=== PATIENT | female | born 1985 | race Caucasian/White ===

== ENCOUNTER → 2021-12-17 11:06 | Outpatient (CLI) | payer OTHER, SELFPAY ==
--- NOTE | 2021-12-17 11:08 | DI.US.S_ITS ---
PROCEDURE: US PELVIC COMPLETE INDICATIONS: History endometriosis, pelvic pain TECHNIQUE: Real-time scanning was performed of the pelvic organs, with image documentation. Additional endovaginal scanning was necessary due to incomplete visualization of the adnexal and endometrial structures by transabdominal scanning. COMPARISON: None. FINDINGS: This study is limited by incomplete bladder prep. Uterus: Uterus is anteverted and normal in size at 7.1 x 2.9 x 4.2 cm. The myometrium is homogeneous. The endometrium measures 5 mm combined thickness. An IUD is seen along the endometrial stripe, which is mildly low lying. Ovaries: The right ovary measures 2.5 x 1.8 x 1.8 cm. The left ovary measures 2.3 x 1.6 x 1.5 cm. The ovaries have a normal sonographic appearance. Prominent vessels can be seen within the right adnexal region. No adnexal masses are seen. Other: No pathologic free abdominal or pelvic fluid. IMPRESSION: No adnexal masses or free pelvic fluid can be seen. The IUD can be seen along the endometrial stripe, yet is mildly low lying. There is prominence of the right adnexal vessels. Please consider pelvic varices. We strive to produce accurate, complete, and clear reports of imaging services. To assist us in improving patient care, this report was composed using standard report templates and voice recognition software. Therefore, it may contain abnormal punctuation, insertions and/or omissions. Occasional wrong-word or sound-alike substitutions may occur. Though we review the report and make efforts to correct it, we do recommend that the report be read carefully in proper context to recognize any text inaccuracies. Dictated by: Saurav Varner M.D. on 12/17/2021 at 12:14 Approved by: Saurav Varner M.D. on 12/17/2021 at 12:16
== END ==
PROVIDERS: PCP Student in an Organized Health Care Education/Training Program; Referring Provider Obstetrics & Gynecology; Visit Provider Obstetrics & Gynecology
DX: R10.2 Pelvic and perineal pain (principal); N80.9 Endometriosis, unspecified
CPT/HCPCS: 76830; 76856

== ENCOUNTER → 2022-03-05 09:55 | Outpatient (CLI) | payer OTHER, SELFPAY ==
[2022-03-05 11:05] LABS: COVID19 -Nasal RAPID Negative (Negative)
== END ==
PROVIDERS: PCP Student in an Organized Health Care Education/Training Program; Visit Provider Obstetrics & Gynecology
DX: Z01.812 Encounter for preprocedural laboratory examination (principal); Z20.822 Contact with and (suspected) exposure to COVID-19
CPT/HCPCS: 87635

== ENCOUNTER 2022-03-06 12:11 | Day surgery (SDC) | payer OTHER, SELFPAY ==
[2022-02-26 15:11] VITALS: BMI 22.8
[2022-03-06] VITALS (10 sets, daily range): BP systolic 95–118; BP diastolic 52–73; PULSE 69–91; RESP 11–17; TEMP 36.3–37.1; O2SAT 98–100; BMI 22.3
--- NOTE | 2022-03-06 | PATH_ITS ---
[facility] Accession Number: [id number] . 01 Material submitted: . uterus - UTERUS AND BILATERAL FALLOPIAN TUBES . 02 Diagnosis: Uterus and Bilateral Fallopian Tubes, Supracervical Hysterectomy and Bilateral Salpingectomy: Variably decidualized endometrium, suggestive of exogenous hormone effect. Myometrium with no diagnostic abnormality. Bilateral fimbriated fallopian tubes with simple benign paratubal cysts. No evidence of neoplasm. [facility] 03/13/2022 1205 Local . 02 Electronically signed: . Christos Easton MD, PhD, Pathologist NPI- [id number] . 01 Gross description: . The specimen is received in formalin, with the designation uterus and bilateral fallopian tubes, consists of a partially fragmented uterine fundus (36 grams, 4.3 cm from fundus to cervical stump, 5.3 cm from cornu to cornu, 2.3 cm from anterior to posterior, fragments of uterine fundus range in size from 1.0 x 0.8 x 0.4 cm to 2.0 x 1.7 x 1.7 cm), attached right fimbriated fallopian tube (5.3 x 0.4 cm), and attached left fimbriated fallopian tube (5.5 x 0.4 cm). The anterior uterine wall is fragmented and the posterior uterine wall is intact. The serosal surfaces are grossly unremarkable, the endometrial cavity (2.8 x 2.2 cm), is lined by pale daniels unremarkable endometrium (0.1 cm average thickness). Sectioning reveals unremarkable myometrium (1.5 cm average thickness). The fallopian tubes are bilaterally unremarkable. The specimen is representatively submitted as follows: . A1: Full thickness rep of fragmented anterior endomyometrium. A2: Full thickness rep of posterior endomyometrium. A3: Entire fimbria and cross sections of right fallopian tube. A4: Entire fimbria and cross sections of the left fallopian tube. ([id number]) /MRV 03/12/2022 1143 Local . 02 Pathologist provided ICD-10: N92.0 . 02 CPT . 489481 Specimen Comment: A courtesy copy of this report has been sent to [phone] Performed at: 01 [facility] [address] [id number] MD Jose A Delgado MD Phone: [phone] Performed at: [address] [facility] [address] [id number] MD Moraima Richards MD Phone: [phone]
[2022-03-06] MEDS: LACTATED RINGERS 1,000 ML 42 ML IV (13:34)
--- NOTE | 2022-03-06 13:57 | PM.PREOP ---
Pre-operative Note COVID-19 COVID-19 status: Negative Result date/Date tested (Pos, Neg/Pending): 03/05/22 Criteria for continued procedure: Non-surgical alternatives not available or appropriate per current SOC Interval Note History & Physical reviewed/Exam performed by Physician: Yes Changes to H&P: No
--- NOTE | 2022-03-06 14:44 | SUR.OPER ---
Lithotomy on padded OR bed. [place] Pad Positioner under torso. Head on pillow, arms padded and tucked at sides. Legs secured in padded yellow fins stirrups.
[2022-03-06 16:00] LABS: Add Manual Diff / Slide Review NO; Basophils Absolute Auto 0 /uL (0-100); Basophils Percent Auto 0.3 % (0-2); Eosinophils Absolute Auto 200 /uL (0-450); Eosinophils Percent Auto 2.8 % (2-4); Hematocrit 35.9 % (36-46); Hemoglobin 12.3 g/dL (12.0-16.0); Lymphocytes Absolute Auto 2100 /uL (1100-4500); Lymphocytes Percent Auto 35.3 % (25-40); Mean Corpuscular HGB Conc 34.1 % (30-36); Mean Corpuscular Volume 87.9 fL (80-100); Monocytes Absolute Auto 400 /uL (0-900); Monocytes Percent Auto 6.4 % (3-14); Neutrophils Absolute Auto 3300 /uL (1500-7000); Neutrophils Percent Auto 55.2 % (50-75); Platelet Count 189 X10^3/uL (150-400); Red Blood Cell Count 4.08 X10^6/uL (4.0-5.2); Red Cell Distribution Width 13.8 % (11.6-14.8)
[2022-03-06 16:19] LABS: Blood Urea Nitrogen 14 mg/dL (7-17); Calcium 8.2 mg/dL (8.4-10.2); Carbon Dioxide 25 mmol/L (22-32); Chloride 108 mmol/L (98-107); Estimated Glomerular Filt Rate > 60.0 mL/min (>60); Glucose 88 mg/dL (70-100); HEMOLYSIS < 15 (0-50); Potassium 3.7 mmol/L (3.4-5.1); Sodium 137 mmol/L (137-145)
[2022-03-06] MEDS: ACETAMINOPHEN IV 1,000 MG/100 ML VIAL 400 MG IV (16:56)
[2022-03-06] MEDS: SCOPOLAMINE 1 PATCH TOP (16:56)
[2022-03-06] MEDS: ONDANSETRON 4 MG/2 ML INJ IV (16:58)
--- NOTE | 2022-03-06 17:14 | SUR.PREOP ---
Pt brougt back from OR @ 1700 due to delay of Surgeon in OB. Pt monitored in pre-op VSS. Pt c/o migraine 05/09 and nausea medicated with zofran, scopalomine patch, and IV Tylenol per Anesthesiologist.
[2022-03-06] MEDS: CEFAZOLIN 2 GM/20 ML SYRINGE IV (18:22)
--- NOTE | 2022-03-06 18:45 | SUR.OPER ---
Lithotomy on padded OR bed. [place] Pad Positioner under torso. Head on pillow, arms padded and tucked at sides. Legs secured in padded yellow fins stirrups.
[2022-03-06] MEDS: BUPIVACAINE 0.25% (PF) 30 ML, EPINEPHrine 0.15 MG INJ (19:02)
[2022-03-06] MEDS: ROPIVACAINE 0.2% PF 2 MG/ML 10ML AMP 20 ML INJ (19:04)
--- NOTE | 2022-03-06 19:51 | P.OP_ITS ---
Operative Date/Time/Diagnoses Date of procedure: 03/06/22 Time of procedure: 17:30 Pre-op diagnosis: menorrhagia Post-op diagnosis: same Procedure & Clinicians Procedure: Procedures Operation Date: 03/06/22 13:30 Actual Procedure Side Surgeon p Laparoscopic Supracervical Hysterectomy w/ bilateral salpingectomy Therese Storey MD Indications: menorrhagia Surgeon: Therese Storey Superintendent Power: Stacie Burns Anesthesia Type: General Operative Notes Findings: Normal vulva, vagina, and cervix. Normal tubes and ovaries. Uterus with no fibroids but texture consistent with adenomyosis. Large, prominent uterine vessels. Abdominal survey otherwise normal. Closure Type: primary Specimen(s): left tube, right tube and uterus Applied: catheter Estimated blood loss (mL): 25 Procedure in detail: After proper consents were obtained, the patient was taken to the operating room. General anesthesia was induced, and she was placed in the dorsal lithotomy position and prepped and draped in the normal sterile fashion. A alvarez catheter was placed, and a speculum placed in the patient's vagina. A single tooth tenaculum was applied to the anterior lip of the cervix, and hegar dilators used to dilate the cervix to 6mm with gentle pressure. A uterine manipulator was gently inserted and the balloon inflated to 5ccs. The tenaculum and speculum were removed from the vagina. Attention was then turned to the abdomen, where 1cc of .25% marcaine with epinephrine was used to infiltrate the skin just below the umbilicus. A scalpel was used to make a 5mm incision, the anterior abdominal wall was elevated, and a Veress needle gently inserted into the abdomen. Intraperitoneal placement was confirmed with a drop of normal saline passed through the veress needle with gravity, and CO2 used to insufflate the abdomen to 15mmHg. A 5mm trocar and sleeve were placed into the abdomen through this incision and intraperitoneal placement was confirmed visually with insertion of the laparoscope. Abdominal survey at this time was normal, and lateral ports were placed under direct visualization. These were placed on the left and right, 8cm from the umbilicus and after infiltration of 1mm of local anesthetic as above. The patient was placed in trendelenburg position, and a blunt probe used to gently push the bowel out of the pelvis. The ovaries and fallopian tubes appeared normal bilaterally. A atraumatic grasper was used to elevate the left fallopian tube, and a PK device was used to amputate the tube, which was removed from the abdomen. The uteroovarian ligament and round ligaments were then cauterized and transected with this device, the anterior and posterior leaflets of the broad ligament and skeletonized and the vesicouterine peritoneum identified. This was transected and a bladder flap created with the PK device and gentle traction. The uterine arteries were identified, and cauterized and cut at the level of the internal os. The same procedure was performed on the patient's right, without complication. The Liliane loop was inserted into the abdomen, and placed around the uterus at the level of the internal os. After careful inspection for proper placement anteriorly and posteriorly, this device was used to amputate the uterine fundus without complication. The PK device was used to ablate the cervical os, and hemostasis achieved where necessary with the PK device. Attention was then turned to the abdominal wall, where .25% marcaine with epinephrine was used to infiltrate a midline area 2cm above the pubic symphesis. A scalpel was used to make a 3cm minilaparotomy, and a 15mm trocar and sleeve inserted under direct visualization into the abdominal cavity. A 12mm endocatch bag was placed through this port under direct visualization, and carefully deployed into the abdomen. The uterus was placed in the bag, and the bag was closed and removed under direct visualization of all parts of the bag. The open end of the bag was removed through the port, the port was removed, and the open end of the endocatch bag brought through the incision. A small Angelica device was inserted to protect the incision and skin, and the uterus was brought to the opening of the incision and carefully hand morcellated out through the incision using a scalpel. After removal of the uterus, the angelica device and endocatch bag were removed. The fascia at the minilaparotomy incision was closed using 0 vicryl in a running fashion. The abdomen was re-insufflated, hemostasis at the operative sites assured, and a repeat abdominal survey was normal. The laparoscope was removed from the abdomen, the insufflating gas allowed to escape, and the ports removed. an interrupted suture was used at the mini-laparotomy to close the subcutaneous space in an interrupted fashion, and the skin at all 4 incisions closed with 4-0 biosyn, then covered with steri strips and bandages. The alvarez catheter was removed from the bladder. The patient tolerated the procedure well, all counts were correct, 2g of Ancef were given at the beginning of the case and a test was negative on admission. The patient was transported to PACU in stable condition. IVF: 1500ccs LR UOP: 100ccs clear yellow urine EBL: 25ccs Complications: none Post-operative Condition: stable Disposition: PACU Plan for aftercare: Routine postoperative care
[2022-03-06] MEDS: OXYCODONE IR 5 MG TABLET PO ×2 (20:04→21:56)
[2022-03-06] MEDS: ONDANSETRON 4 MG/2 ML INJ (20:04)
--- NOTE | 2022-03-06 20:43 | PC.NURSE ---
Patient up from PACU via bed. Pt awake and alert. Pain tolerable at a 5/10 and was medicated recently in PACU. in room visiting. Pt resting in bed at this time.
[2022-03-06] MEDS: ACETAMINOPHEN 325 MG TABLET 650 MG PO (21:56)
[2022-03-07 00:50] VITALS: BP 101/66; PULSE 67; RESP 16; O2SAT 98
[2022-03-07] MEDS: ONDANSETRON 4 MG/2 ML INJ IV (01:00)
[2022-03-07 05:16] VITALS: BP 93/51; PULSE 64; RESP 16; TEMP 36.7; O2SAT 100
[2022-03-07] MEDS: OXYCODONE IR 5 MG TABLET PO ×2 (05:20→08:24)
[2022-03-07] MEDS: ACETAMINOPHEN 325 MG TABLET 650 MG PO ×2 (05:20→11:55)
[2022-03-07 06:04] LABS: Add Manual Diff / Slide Review NO; Basophils Absolute Auto 0 /uL (0-100); Basophils Percent Auto 0.1 % (0-2); Eosinophils Absolute Auto 0 /uL (0-450); Hematocrit 36.5 % (36-46); Hemoglobin 12.2 g/dL (12.0-16.0); Lymphocytes Absolute Auto 700 /uL (1100-4500); Lymphocytes Percent Auto 11.1 % (25-40); Mean Corpuscular HGB Conc 33.4 % (30-36); Mean Corpuscular Hemoglobin 29.9 PG (26-34); Mean Corpuscular Volume 89.4 fL (80-100); Monocytes Absolute Auto 300 /uL (0-900); Monocytes Percent Auto 4.1 % (3-14); Neutrophils Absolute Auto 5200 /uL (1500-7000); Neutrophils Percent Auto 84.7 % (50-75); Platelet Count 217 X10^3/uL (150-400); Red Blood Cell Count 4.08 X10^6/uL (4.0-5.2); Red Cell Distribution Width 13.8 % (11.6-14.8); White Blood Cell Count 6.1 X10^3/uL (4.5-11.0)
[2022-03-07 06:29] LABS: BUN Creatinine Ratio 15.1 (6-22); Blood Urea Nitrogen 13 mg/dL (7-17); Calcium 8.6 mg/dL (8.4-10.2); Carbon Dioxide 24 mmol/L (22-32); Chloride 105 mmol/L (98-107); Estimated Glomerular Filt Rate > 60.0 mL/min (>60); Glucose 138 mg/dL (70-100); HEMOLYSIS < 15 (0-50); Potassium 4.8 mmol/L (3.4-5.1); Sodium 135 mmol/L (137-145)
[2022-03-07 07:00] VITALS: BP 93/49; PULSE 66; RESP 20; TEMP 36.9; O2SAT 98
[2022-03-07] MEDS: IBUPROFEN 400 MG TABLET 600 MG PO (08:25)
[2022-03-07 11:11] VITALS: BP 90/49; PULSE 58; RESP 20; TEMP 36.8; O2SAT 100
--- NOTE | 2022-03-07 12:24 | CM.DANOTE ---
DCP: Case received, EMR reviewed and met with patient. Introduced self and role. Was able to receive some information from patient regarding her current living situation. DCP assessment completed with information currently available. Patient is a 36 year old female who admitted yesterday morning to the care of the [facility] team. PCP: Dr. Mayers. Payer: confirmed: [facility]. Patient came to the hospital for a surgical procedure. Patient had laparoscopic supracervical hysterectomy with bilateral salpingectomy. Patient has history of menorrhagia. Met with patient in her room. She is alert and oriented. She was sitting up in bed, had been speaking to spouse. Patient resides in [place] with her spouse, Deep, who is active duty [id number]. They have 4 children, 15, 12, 9, and 6. Patient has home schooled some of her children. Confirmed with patient that spouse will be able to help her at home, he took some time off of work. P: DCP to continue to follow. Patient should be able to go home when she is deemed medically stable. Zenaida Cloud RN/Swine Extension Field Specialist Discharge Planning/Care Management CM Discharge Assessment Start: 03/07/22 12:23 Freq: Status: Active Protocol: Document 03/07/22 12:23 (Rec: 03/07/22 12:24 [id number]) Discharge Planning Assessment Assigned Buttonhole Maker Hand Zenaida Cloud RN/Swine Extension Field Specialist Advance Directives? No History Provided By Patient,Medical Record Prior Living Arrangements House Household Members spouse,children Type of transporation used prior to Drives own vehicle admit Independent with ADL's Yes Is patient alert and oriented? Yes Caregiver for Another No Barriers to Discharge No Discharge Plan Home Transportation Arrangement Spouse Referrals Initiated None needed Whiteboard Updated in Patient Room with Yes name and ext. # of Buttonhole Maker Hand Review Status In Process Next Review Type Continued Stay Review Pre-Anesthesia Assessment Start: 02/26/22 15:11 Freq: Status: Complete Protocol: Document 02/26/22 15:11 CAB (Rec: 02/26/22 15:13 CAB [id number]) Pre-Anesthesia Assessment Patient Information Reviewed Via Chart Review Comment COVID screen @ 03/06/22 Primary Care Provider Mary Mayers Seen Specialist in Last 12 Months Yes Specialist Seen Chief Jailer Primary Language Brazilian Executive Sous Chef Required No Height 5 ft 4 in Weight 133 lb Body Mass Index (BMI) 22.8 Barriers to Learning None Hx Anesthesia Reactions No Anesthesia Review Requested No Inventory Technician No Smoking Status Former smoker History of Falling (Recent or History of No ) Patient is completely paralyzed or No completely immobile Mental Status Oriented to own ability Is patient on oxygen? No Hx Sleep Apnea No Currently Taking a Beta Lynette No Anti-Coagulant Therapy No Has a Sales Broker No Cardiac Testing No Hx Pacemaker/ICD No Pacemaker Rep Required? No Cardiac Clearance Received Not Applicable Urinary Catheter Present No Hx Urinary Self Catheterization No Diabetes No Patient No Lactating No Presence of External or Internal Medical IUD Devices Marital Status Lives With spouse,children Patient Discharge Plan Description Return Home
--- NOTE | 2022-03-07 12:39 | PM.DS.1 ---
History of Present Illness History of Present Illness Date Patient Seen: 03/07/22 Time Patient Seen: 08:00 Chief complaint: menorrhagia Narrative: This patient is a 36yo P4 admitted for a laparoscopic supracervical hysterectomy and bilateral salpingectomy for menorrhagia. Her surgery was uncomplicated, and she met postoperative goals appropriately on POD#1. She was discharged home with routine precautions. Discharge Providers Provider Date of admission: 03/06/2022 Discharge Date: 03/07/22 Primary care physician: Mary Mayers MD Consults: 03/06/22 20:20 Consult to Discharge Planning Routine Comment: Discharge provider: Therese Storey MD Summary Hospital Course Discharge Diagnosis: s/p laparoscopic supracervical hysterectomy Hospital Course: This patient was admitted for laparoscopic supracervical hysterectomy and bilateral salpingectomies for menorrhagia. Her surgery was uncomplicated, and she was discharged on POD#1 after meeting postoperative goals appropriately. Status at Discharge Cognitive/behavioral status at discharge: oriented Functional status at discharge: independent ambulation Overall status at discharge: patient is progressing back to baseline Time Spent with Patient Time spent: Greater than 30 minutes Exam Vital Signs (past 8 hours): - 03/07/22 05:16 03/07/22 07:00 03/07/22 11:11 Temperature 98.1 F 98.4 F 98.3 F Pulse Rate 64 66 58 L Respiratory Rate 16 20 20 Blood Pressure 93/51 L 93/49 L 90/49 L Pulse Oximetry 100 98 100 Oxygen Delivery Method Room Air Oxygen Flow Rate 0 Narrative Exam Narrative: Patient reports feeling well. Eating, passing flatus, voiding, no vaginal bleeding. Pain well controlled on PO pain medication, no chest pain or trouble breathing. Const General: cooperative, healthy appearing, comfortable and well groomed Resp Effort & Inspection: normal respiratory effort Auscultation: clear to auscultation bilaterally Cardio Rate: regular rate Rhythm: regular rhythm GI Inspection: incision (c/d/i) Palpation: soft and No tender Extrem General: normal to inspection Objective Labs Result Diagrams: 03/07/22 05:00 03/07/22 05:00 Labs: Laboratory Results - last 24 hr 03/06/22 03/06/22 03/06/22 15:53 15:53 15:53 WBC 6.0 RBC 4.08 Hgb 12.3 Hct 35.9 L MCV 87.9 MCH 30.0 MCHC 34.1 RDW 13.8 Plt Count 189 Neut % (Auto) 55.2 Lymph % (Auto) 35.3 Williamson % (Auto) 6.4 Eos % (Auto) 2.8 Baso % (Auto) 0.3 Neut # (Auto) 3300 Lymph # (Auto) 2100 Williamson # (Auto) 400 Eos # (Auto) 200 Baso # (Auto) 0 Sodium 137 Potassium 3.7 Chloride 108 H Carbon Dioxide 25 BUN 14 Creatinine 0.70 Estimated GFR > 60.0 BUN/Creatinine Ratio 20.0 Glucose 88 Calcium 8.2 L Blood Type O Negative Antibody Screen Negative 03/07/22 03/07/22 05:00 05:00 WBC 6.1 RBC 4.08 Hgb 12.2 Hct 36.5 MCV 89.4 MCH 29.9 MCHC 33.4 RDW 13.8 Plt Count 217 Neut % (Auto) 84.7 H D Lymph % (Auto) 11.1 L D Williamson % (Auto) 4.1 Eos % (Auto) 0.0 L Baso % (Auto) 0.1 Neut # (Auto) 5200 Lymph # (Auto) 700 L Williamson # (Auto) 300 Eos # (Auto) 0 Baso # (Auto) 0 Sodium 135 L Potassium 4.8 Chloride 105 Carbon Dioxide 24 BUN 13 Creatinine 0.86 Estimated GFR > 60.0 BUN/Creatinine Ratio 15.1 Glucose 138 H Calcium 8.6 Blood Type Antibody Screen [facility] Medical History Anxiety Exercise-induced asthma Frequent UTI Heavy menstrual period Migraines Surgical History Anesthesia History of laparoscopy History of sinus surgery Vaginal delivery Family History Father Diabetes mellitus Grandfather Cancer Grandmother Cancer Diabetes mellitus Social History household members: spouse and children Smoking Status: Never smoker alcohol intake: never Discharge Assessment & Plan Assessment and Plan Assessment: This patient is s/p uncomplicated planned laparoscopic supracervical hysterectomy and bilateral salpingectomies. She is stable and meeting postoperative goals appropriately. Plan of Treatment: Discharge home with routine precautions. Discharge Plan Discharge Plan Patient Disposition: Home Discharge orders & Medications Discharge Orders: Discharge (Order); Ordered 03/07/22 Ordered By: Therese Storey Prescriptions: New oxycodone 5 mg tablet 5 mg PO Q6H PRN (Reason: pain) Qty: 14 0RF Rx Instructions: Tale as often as every 6 hours for pain. Discontinued Mirena 20 mcg/24 hours (7 yrs) 52 mg intrauterine device 1 device intrauterine CONT 0RF Follow up/Referrals: Therese Storey MD [Physician] - 2 Weeks (postop check) Diet/Activity/Treatments Diet: Regular Activity: Nothing in the vagina for 6 weeks. Avoid lifting more than 10 lbs for 6 weeks. If you have increasing bleeding, pain, fevers, chills, chest pain, trouble bleeding, or any other symptoms or concerns, call the office or come to the emergency department. Skin/Wound/Dressing Care Report to your healthcare provider any signs of infection, such as:: chills, fever, night sweats, increased pain, unusual drainage and unusual redness Dressing: Remove bandages in the shower today. Remove steri strips in one week, or sooner if they become soiled. Visit Report/Discharge Packet Instructions: DI for Hysterectomy, DI for Laparoscopy Stand Alone Forms: Surgery Discharge Discharge Data Primary Care Provider: Mary Mayers Attending Provider: Therese Storey
== END 2022-03-07 13:26 | disposition home or self-care (01) ==
LOC: OR 12:14 → AC 12:16
PROVIDERS: PCP Student in an Organized Health Care Education/Training Program; Referring Provider Obstetrics & Gynecology; Visit Provider Obstetrics & Gynecology
PROC: 0UT94ZL Resection of Uterus, Supracervical, Percutaneous Endoscopic Approach (ICD-10-PCS; CPT 58542; principal; 2022-03-06 13:30)
DX: N92.0 Excessive and frequent menstruation with regular cycle (principal); N83.8 Other noninflammatory disorders of ovary, fallopian tube and broad ligament
CPT/HCPCS: 58542; 36415; 80048; 81025; 85025; 86850; 86900; 86901; J0131; J0171; J0690; J1100; J1885; J2250; J2405; J2704; J2795; J3010

== ENCOUNTER → 2022-03-17 13:26 | Outpatient (CLI) | payer OTHER, SELFPAY ==
[2022-03-06 20:32] VITALS: BMI 22.3
== END ==
PROVIDERS: PCP Student in an Organized Health Care Education/Training Program; Visit Provider Obstetrics & Gynecology
DX: R10.9 Unspecified abdominal pain (principal)
CPT/HCPCS: 87086

== ENCOUNTER → 2022-04-10 12:22 | Outpatient (CLI) | payer OTHER, SELFPAY ==
[2022-03-06 20:32] VITALS: BMI 22.3
== END ==
PROVIDERS: PCP Student in an Organized Health Care Education/Training Program; Visit Provider Obstetrics & Gynecology
DX: R31.9 Hematuria, unspecified (principal); Z90.710 Acquired absence of both cervix and uterus
CPT/HCPCS: 87086

== ENCOUNTER 2022-05-11 12:15 | Emergency (ER) | payer OTHER, SELFPAY ==
[2022-03-06 20:32] VITALS: BMI 22.3
[2022-05-11 12:29] VITALS: BP 126/72; PULSE 99; RESP 16; TEMP 36.9; O2SAT 97; BMI 23.1
--- NOTE | 2022-05-11 12:33 | DI.RAD.S_ITS ---
PROCEDURE: XR ANKLE LT MIN 3V INDICATIONS: swelling, deformity, playing kickball TECHNIQUE: 3 views of the ankle were acquired. COMPARISON: None. FINDINGS: Bones: Acute oblique fracture through distal fibular shaft is seen with dorsal and lateral displacement at fracture site. Ankle mortise is normally aligned. No suspicious bony lesions. Soft tissues: No tibiotalar joint effusion. Achilles tendon appears normal. IMPRESSION: Acute displaced distal fibular shaft fracture as above. Dictated by: Az Saba M.D. on 05/11/2022 at 12:56 Approved by: Az Saba M.D. on 05/11/2022 at 13:00
[2022-05-11] MEDS: ACETAMINOPHEN 325 MG TABLET 975 MG PO (12:39)
[2022-05-11] MEDS: IBUPROFEN 400 MG TABLET 800 MG PO (12:39)
--- NOTE | 2022-05-11 14:32 | ED_ITS ---
HPI - Extremity Injury (Lower) General Chief Complaint: Extremity Injury, Lower Stated Complaint: Possible Lt Ankle Break Time Seen by Provider: 05/11/22 14:26 Source: patient Mode of arrival: Ambulatory Limitations: no limitations History of Present Illness HPI Narrative: This is a 36-year-old female who comes emergency department with complaint of ankle injury and possible fracture. Patient was playing kickball. She states she was sliding into base when she was hit in the face with a kickball itself, she thinks this threw her off balance she caught her foot causing pain as the ankle itself. She has tingling into the entire foot. She has pain with any sort of movement or weight-bearing. She denies any other injuries. She had hysterectomy 2 months ago, denies any daily medications. No known drug al lergies. She has had narcotics before without issue. Related Data Previous Rx's Medication Instructions Recorded sulfamethoxazole 800 1 tab PO BID UTI #6 tabs 04/10/22 mg-trimethoprim 160 mg tablet (Bactrim DS) oxycodone 5 mg tablet 5 mg PO QID PRN pain #20 tabs 05/11/22 Allergies Allergy/AdvReac Type Severity Reaction Status Date / Time No Known Drug Allergies Allergy Verified 04/01/22 11:49 Review of Systems Review of Systems ROS Unobtainable: All systems reviewed & are unremarkable except as noted in HPI and below Patient History Medical History Anxiety Exercise-induced asthma Frequent UTI Heavy menstrual period Migraines Surgical History Anesthesia History of laparoscopy History of sinus surgery Vaginal delivery Family History Father Diabetes mellitus Grandfather Cancer Grandmother Cancer Diabetes mellitus Social History household members: spouse and children Smoking Status: Never smoker alcohol intake: never Smoking Status: Never smoker alcohol intake frequency: holidays/special occasions only Substance Use Type: does not use Exam Narrative Exam Narrative: GENERAL: Alert and oriented x three, female in mild distress HEENT: Head normocephalic, atraumatic, EOMI, pupils reactive, face symmetric, moist mucous membranes NECK: Supple, full range of motion CARDIOVASCULAR: Regular rate and rhythm without murmurs, rubs or gallops. RESPIRATORY: Breath sounds equal bilaterally, no wheezes rales or rhonchi. ABDOMEN: Soft, nontender. Normoactive bowel sounds all 4 quadrants. No guarding or rebound, rigidity, no mass EXTREMITIES: Decreased range of motion, patient has pain over the ankle particularly laterally month malleoli. No bony tenderness throughout the foot. She has sensation to light touch. Movement of all 5 toes. Patient has 2+ dorsalis pedis. NEUROLOGICAL: Cranial nerves II through XII grossly intact. Moving all extremities SKIN: Warm, dry, no petechiae, no rashes or lesions. Initial Vital Signs Initial Vital Signs: Vital Signs Temperature 98.4 F 05/11/22 12:29 Pulse Rate 99 H 05/11/22 12:29 Respiratory Rate 16 05/11/22 12:29 Blood Pressure 126/72 05/11/22 12:29 Pulse Oximetry 97 05/11/22 12:29 Oxygen Delivery Method 05/11/22 12:29 Course Orders Ordered: Discontinued Medications Acetaminophen (Acetaminophen 325 Mg Tablet) 975 mg PO NOW ONE Stop: 05/11/22 12:36 Last Admin: 05/11/22 12:39 Dose: 975 mg Documented By: CTS Ibuprofen (Ibuprofen 400 Mg Tablet) 800 mg PO NOW ONE Stop: 05/11/22 12:36 Last Admin: 05/11/22 12:39 Dose: 800 mg Documented By: CTS Oxycodone HCl (Oxycodone Ir 5 Mg Tablet) 10 mg PO NOW ONE Stop: 05/11/22 14:48 Last Admin: 05/11/22 15:00 Dose: 10 mg Documented By: KB Reevaluation(s) Reevaluation #1: Patient is hurting a little bit more immediately after splint placement. Neurovascularly intact. Consultations Consultation #1: Dr. Juan, orthopedic surgery follow-up with office on Thursday. Splint, toe- touch weight-bearing. Vital Signs Vital signs: Vital Signs - 8 hr 05/11/22 12:29 05/11/22 15:30 Temperature 98.4 F Pulse Rate 99 H 70 Respiratory Rate 16 18 Blood Pressure 126/72 120/70 Pulse Oximetry 97 98 Oxygen Delivery Method Room Air MDM - Extremity Injury (Lower) Imaging Data Extremity x-ray #1: Radiologist's Impression: [address] [address] XRay Report Signed Patient: Alexa Avendano MR#: [id number] : 1985 Acct:[id number] Age/Sex: 36 / F Date of Service: 05/11/22 Loc: ED Accession Number: [id number] ?? Procedure: XR ankle LT min 3V Ordering Provider: Mara White D.O. PROCEDURE:? XR ANKLE LT MIN 3V ? INDICATIONS:? swelling, deformity, playing kickball ? TECHNIQUE:? 3 views of the ankle were acquired.? ? COMPARISON:? None. ? FINDINGS:? ? Bones:? Acute oblique fracture through distal fibular shaft is seen with dorsal and lateral displacement at fracture site.? Ankle mortise is normally aligned.? No suspicious bony lesions.? ? Soft tissues:? No tibiotalar joint effusion.? Achilles tendon appears normal.? ? ? IMPRESSION:? Acute displaced distal fibular shaft fracture as above. ? Dictated by: Az Saba M.D. on 05/11/2022 at 12:56 ? ? Approved by: Az Saba M.D. on 05/11/2022 at 13:00?? MDM Narrative Medical decision making narrative: 36-year-old female who was playing kickball when she slid into home base fraction her fibula. She does have pain on the opposite side but no clear fracture. Discussed could be tendon ligament injury or occult fracture as well she is placed in a posterior splint with sugar-tong good alignment. Oral pain medication and follow-up with Orthopedic surgery after consultation with Dr. Juan who agrees with current plant. Return precautions were discussed all questions answered. Discharge Plan Departure Patient Disposition: Home Clinical Impression: Closed fibular fracture Instructions: DI for Ankle Fracture Activity Restrictions/Additional Instructions: Follow-up with orthopedic surgery for recheck. Call tomorrow morning for an appointment in the next week. Referral is included below. Toe-touch weight-bearing with crutches. Take pain medication as prescribed. This medication can make you sleepy do not drive, perform hazardous activities or make any major decisions while taking it. This medication will make you constipated please take a stool softener once to twice daily until stools are soft and regular. Prescription sent to [facility] in [place]. Splint Care: Keep splint clean and dry. Elevated affected body part to decrease swelling. OK to use ice pack on the affected body part. Use for 15-20 minutes each time, for 5-6x per day. If you develop worsening pain, numbness, tingling, discoloration of the affected body part, loosen the splint by loosening the LESLIE wrap, and either see your doctor for an urgent re-assessment, or return to the Emergency Department. Return to the Emergency Department for any new or worsening symptoms. Prescriptions: New oxycodone 5 mg tablet 5 mg PO QID PRN (Reason: pain) Qty: 20 0RF No Action sulfamethoxazole-trimethoprim [Bactrim DS] 800-160 mg tablet 1 tab PO BID Qty: 6 0RF Rx Instructions: Take twice daily for 3 days. Referrals: Connie Israel MD [Physician] - Mary Mayers MD [Primary Care Provider] - Cholo Juan MD [Physician] - Visit Report Forms: Patient Portal/API
[2022-05-11] MEDS: OXYCODONE IR 5 MG TABLET 10 MG PO (15:00)
[2022-05-11 15:30] VITALS: BP 120/70; PULSE 70; RESP 18; O2SAT 98
== END 2022-05-11 16:15 | disposition home or self-care (01) ==
PROVIDERS: Emergency Provider Emergency Medicine; PCP Student in an Organized Health Care Education/Training Program
DX: S82.402A Unspecified fracture of shaft of left fibula, initial encounter for closed fracture (principal); Y93.69 Activity, other involving other sports and athletics played as a team or group
CPT/HCPCS: 29515; 73610; 99283

== ENCOUNTER → 2022-05-14 11:47 | Outpatient (CLI) | payer OTHER, SELFPAY ==
[2022-03-06 20:32] VITALS: BMI 22.3
[2022-05-14 12:47] LABS: COVID19 -Nasal RAPID Negative (Negative)
== END ==
PROVIDERS: PCP Student in an Organized Health Care Education/Training Program; Referring Provider Orthopaedic Surgery; Visit Provider Orthopaedic Surgery
DX: Z20.822 Contact with and (suspected) exposure to COVID-19 (principal)
CPT/HCPCS: 87635; C9803

== ENCOUNTER 2022-05-15 07:48 | Day surgery (SDC) | payer OTHER, SELFPAY ==
[2022-03-06 20:32] VITALS: BMI 22.3
[2022-05-14 14:54] VITALS: BMI 22.8
[2022-05-15] VITALS (13 sets, daily range): BP systolic 89–114; BP diastolic 47–76; PULSE 72–105; RESP 12–21; TEMP 35.9–37; O2SAT 94–100; BMI 22.8
[2022-05-15] MEDS: LACTATED RINGERS 1,000 ML 42 ML IV (08:33)
--- NOTE | 2022-05-15 08:51 | P.HP_ITS ---
History of Present Illness History of Present Illness Date Patient Seen: 05/15/22 Time Patient Seen: 08:51 Chief complaint: SDC Narrative: 36-year-old female who sustained a left ankle fracture while playing kickball. Patient was sliding into home plate when she twisted her ankle resulting in a distal fibular fracture. No other injuries sustained at that time. Patient History Medical History Anxiety Exercise-induced asthma Frequent UTI Heavy menstrual period Migraines Surgical History Anesthesia H/O: hysterectomy (03/06/22) History of laparoscopy History of sinus surgery Vaginal delivery Family & Social History Family History Father Diabetes mellitus Grandfather Cancer Grandmother Cancer Diabetes mellitus Social History: household members spouse,children Tobacco & Substance use: Smoking Status Never smoker alcohol intake current alcohol intake frequency holiday/special occasion Substance Use Type does not use Meds Home Medications and Allergies Home Medications Medication Instructions Recorded Confirmed Type oxycodone 5 mg tablet 5 mg PO QID PRN pain #20 tabs 05/11/22 05/14/22 Rx amitriptyline 25 mg tablet 25 tab PO DAILY 05/15/22 05/15/22 History Allergies Allergy/AdvReac Type Severity Reaction Status Date / Time No Known Drug Allergies Allergy Verified 05/15/22 08:10 Exam Vital Signs (past 8 hours): - 05/15/22 08:14 Temperature 98.6 F Pulse Rate 83 Respiratory Rate 20 Blood Pressure 106/67 Pulse Oximetry 99 Oxygen Delivery Method Room Air Oxygen Delivery Method Room Air Narrative Exam Narrative: Patient is in a splint immobilizing the ankle. Patient has full range of motion of the knee and hip with no pain or discomfort. Dorsiflexion and plantar flexion of the toes. Brisk cap refill. Rest of the extremity free of any injury. Right leg and bilateral upper extremities also free of any injuries or abnormalities. Assessment & Plan Assessment & Plan narrative: Patient with a displaced distal fibular fracture. Due to the amount of displacement I would recommend open reduction internal fixation. Patient's x- rays also show some slight widening of the medial malleolus which will need to be corrected as well. I went over the particular risk and limitations associated with the procedure and all the patient's questions and concerns were answered to her full satisfaction. The risk, benefits, alternatives, possible complications, operative course, and postop outcomes were discussed. Complications including but not limiting to bleeding, infection, fracture, nerve injury, continued pain postoperatively or instability postoperatively were discussed in detail. Medical complications including but not limited to deep venous thrombosis event, anesthesia complications with excessive bleeding, vascular events or cardiac events and other possible complications were discussed in detail. Need for postoperative rehabilitation and anticipated hospital stay and clinical course were discussed in detail. Patient acknowledges understanding and elects to proceed with surgery. Time Spent With Patient Critical Care time: I spent a total of [] minutes of critical care time on this patient's care today; this time is exclusive of procedural time.
--- NOTE | 2022-05-15 08:54 | PM.PREOP ---
Pre-operative Note Interval Note History & Physical reviewed/Exam performed by Physician: Yes Changes to H&P: No
[2022-05-15] MEDS: CEFAZOLIN 2 GM/20 ML SYRINGE IV (09:25)
[2022-05-15] MEDS: BUPIVACAINE 0.25% (PF) 30 ML, EPINEPHrine 0.15 MG INJ (09:45)
--- NOTE | 2022-05-15 09:51 | SUR.OPER ---
Supine on padded OR bed, head on pillow, arms secured on padded arm boards at <90 degrees abduction, legs uncrossed, safety belt at thigh, tape over blanket over lower legs.
[2022-05-15] MEDS: OXYCODONE/ACETAMINOPHEN 5/325 TABLET 1 TAB PO ×2 (10:36→11:01)
[2022-05-15] MEDS: fentaNYL 100 MCG/2 ML INJ IV ×2 (10:37→10:47)
--- NOTE | 2022-05-15 10:37 | PM.OP.1 ---
Operative Date/Time/Diagnoses Date of procedure: 05/15/22 Time of procedure: 09:45 Pre-op diagnosis: Left distal fibula fracture Post-op diagnosis: same Procedure & Clinicians Procedure: Open reduction internal fixation left distal fibular fracture Same procedure as scheduled: Yes Indications: Left distal fibular fracture Surgeon: Cholo Juan Click Yes if Unassisted: Yes Anesthesia Type: General Operative Notes Findings: Displaced distal fibular fracture with minimal comminution. Some slight widening of the medial malleolus. No sign of any fractures involving the medial or posterior malleolus. Closure Type: primary Applied: implant(s) (Arthrex distal fibular plate) Estimated Blood Loss (mL): 5 Tourniquet time (min): 37 Procedure in detail: On date of service, patient was met in the holding area where her operative site was signed and witnessed by the OR staff. Surgeries once again discussed with the patient and any remaining questions or concerns she had were answered fully. Patient was taken back to the operating theater. Placed on the operating table in a supine position. Great care was taken to ensure that all bony prominences were appropriately padded. Well-padded tourniquet was placed up along the left leg. Time-out was performed verifying patient's name, procedure, and operative site. Left leg was prepped and draped in normal sterile fashion. Esmarch was used to exsanguinate the limb and the tourniquet was turned up to 250 mm of mercury. Ten blade was used to incise through skin and fascial tissue. An incision was made starting at the tip of the distal fibula and extending proximally. Deep knife was used to continue sharp dissection down to the periosteum of the distal fibula. Periosteal tissue was dissected off the distal fibula giving us good visualization of the fracture. A curette was used to debride the fracture site removing any interposed soft tissue. Then the fracture site was copiously irrigated. Next, 2 point reduction forceps were used to reduce the fracture. C-arm was brought in to verify reduction. Once we were satisfied with the reduction a lag screw was placed across fracture. This provided good compression at the fracture site. Next, distal fibular plate was placed and held provisionally. This was then secured both proximal and distal to the fracture the combination of locking and nonlocking screws. The plate and screws plus the lag screw provided strong overall fixation and stabilization of the fracture. The wound was then copiously irrigated. It was closed in layered fashion. Patient's leg was cleaned, dried, and dressed and a splint was placed. Patient was extubated and taken to the PACU in stable condition. Complications: none Post-operative Condition: stable Disposition: PACU Plan for aftercare: Patient will be nonweightbearing to the left lower extremity. At the Patient's 2 week follow-up can be placed into a fracture boot.
[2022-05-15] MEDS: HYDROMORPHONE 2 MG INJ IV ×8 (10:55→11:30)
[2022-05-15] MEDS: ONDANSETRON 4 MG/2 ML INJ IV (11:02)
== END 2022-05-15 12:30 | disposition home or self-care (01) ==
PROVIDERS: PCP Student in an Organized Health Care Education/Training Program; Referring Provider Orthopaedic Surgery; Visit Provider Orthopaedic Surgery
PROC: (CPT 27792; principal; 2022-05-15 09:15)
DX: S82.892A Other fracture of left lower leg, initial encounter for closed fracture (principal); X50.1XXA Overexertion from prolonged static or awkward postures, initial encounter; Y93.6A Activity, physical games generally associated with school recess, summer camp and children
CPT/HCPCS: 27792; C1713; J0171; J0690; J1100; J1170; J2405; J2704; J3010

== ENCOUNTER 2023-01-16 06:10 | Day surgery (SDC) | payer OTHER, SELFPAY ==
[2022-03-06 20:32] VITALS: BMI 22.3
[2023-01-13 11:55] VITALS: BMI 23.1
[2023-01-16] VITALS (10 sets, daily range): BP systolic 96–120; BP diastolic 57–75; PULSE 70–107; RESP 8–16; TEMP 36.1–36.9; O2SAT 94–99; BMI 24.9
[2023-01-16] MEDS: LACTATED RINGERS 1,000 ML 42 ML IV (07:07)
--- NOTE | 2023-01-16 07:30 | PM.PREOP ---
Pre-operative Note Interval Note History & Physical reviewed/Exam performed by Physician: Yes Changes to H&P: No
[2023-01-16] MEDS: CEFAZOLIN 2 GM/100 ML PREMIX 100 ML IV (07:46)
--- NOTE | 2023-01-16 08:15 | SUR.OPER ---
Supine on padded OR bed, head on pillow, arms secured on padded arm boards at <90 degrees abduction, legs uncrossed, safety belt at abdomen, tape over blanket over lower right leg, gel pad under heel. [place] padding under left leg, Arthrex ankle distractor used to position
[2023-01-16] MEDS: BUPIVACAINE 0.5% W/ EPI (PF) 30 ML VIAL INJ (08:27)
[2023-01-16] MEDS: fentaNYL 100 MCG/2 ML INJ IV ×2 (10:10→10:18)
[2023-01-16] MEDS: OXYCODONE/ACETAMINOPHEN 5/325 TABLET 1 TAB PO ×2 (10:23→10:43)
[2023-01-16] MEDS: KETOROLAC 30 MG/ML VIAL IV (10:31)
[2023-01-16] MEDS: HYDROMORPHONE 2 MG INJ IV ×2 (11:19→11:25)
--- NOTE | 2023-01-16 18:06 | P.OP_ITS ---
Operative Date/Time/Diagnoses Date of procedure: 01/16/23 Time of procedure: 18:06 Pre-op diagnosis: Painful orthopedic hardware Osteochondral defect tibia Loose body ankle joint Closed fracture posterior malleolus left tibia with malunion painful spur and exostosis Post-op diagnosis: other (Painful orthopedic hardware, closed fracture posterior malleolus left tibia with malunion, painful spur and exostosis, osteochondral defect talus, osteochondral defect tibia) Procedure & Clinicians Procedure: 1. Arthroscopic debridement left ankle with drilling osteochondral lesion talus CPT code 70503 2. Arthroscopic removal loose body ankle CPT code 08665 3. Partial excision bone tibia CPT code 34964 + modifier 59 4. Removal of implant ankle hardware plate and screws CPT code 56874 left + modifier 59 Same procedure as scheduled: Yes (With addition of drilling osteochondral lesion talus ocl) Indications: Patient is a 37-year-old female who had a displaced left ankle fracture fixation greater than 6 months ago by another orthopedic surgeon. She would persistent pain. CT scan revealed a malunited posterior medial distal tibia fracture with osteochondral defect of the tibial plafond. Quite tender posterior medially and there is possibility of a talar osteochondral lesion but deferred MRI due to present hardware. There is also concern for loose body on the CT scan. And pain around the posterior tibialis tendon groove where there is a prominent spur from the malunited posterior medial fragment. She is also tender along her la teral hardware. She was indicated for hardware removal ankle arthroscopy and debridement as indicated and posterior tibial spur excision. The risks and benefits of the procedure have been discussed with the patient and given the opportunity to ask questions. The risks of surgery include but are not limited to infection, malunion, nonunion, persistence of pain, damage to nerves and blood vessels, posttraumatic arthritis, DVT, PE, cardiopulmonary complications and . The patient expressed a thorough understanding of the risks and benefits of surgery and has elected to proceed. Consent was signed in the office. Surgeon: Connie Israel Click Yes if Unassisted: Yes Anesthesia Type: General and Local Operative Notes Findings: 1. Ankle arthroscopy demonstrated a posterior medial small osteochondral lesion proximally 5 mm. This was debrided and microfractured. Additionally there is a tomorrow cartilaginous loose body. There was some irregularity noted at the posterior tibia this was quite posterior not completely visualized from the anterior arthroscopy but no other impinging lesions were noted. There was a small anterior distal tibial spur 2. The open posterior medial incision demonstrated a prominent bone spike as the area of the healed but malunited posterior medial fragment this was directly at the posterior tibial tendon which was rubbing over this area. The posterior tibialis tendon itself was intact. The spur was removed with the use of a rongeur and a bur. This was then smoothed out with a rasp and bone wax placed to allow a smooth surface for the posterior tibialis tendon. 3. Laterally the distal fibula plate and screws including separate inter frag lag screw were removed in total. All hardware was removed and accounted for. Closure Type: primary Specimen(s): none sent Estimated Blood Loss (mL): 20 Blood products transfused: none Tourniquet time (min): 80 Procedure in detail: Patient was seen in the preoperative area the site of surgery marked informed consent confirmed she was brought back to the operating room by the anesthesia team positioned supine on operative table. General anesthetic was administered. All bony prominences well padded. A well-padded thigh tourniquet was placed on the operative extremity. The extremity was prepped and draped in the standard sterile fashion. A formal time-out procedure was performed confirming the patient's side and site of surgery administration of appropriate preoperative antibiotic and presence of informed consent. All were in agreement. The procedure started with the ankle arthroscopy. The tourniquet was raised on the thigh to 250 malleolus mercury after exsanguination with the Esmarch. The joint was insufflated with 10 cc of 0.25% Marcaine with epinephrine and the medial portal was established through standard mirta and spread technique. Then the small joint arthroscope was inserted. The anterior lateral portal was established under direct visualization with care to make sure this was lateral to the branch of the superficial peroneal nerve. The noninvasive distractor was set up. Diagnostic arthroscopy was completed with findings above. The shaver and scope were alternated through the anterior medial anterior lateral portals to gain access to the posterior medial small osteochondral lesion and remove the cartilaginous a small loose body. It was not felt that any further cartilage or microfracture would be required for the irregularity of the very posterior tibial part of the joint but the talar osteochondral lesion at the medial area of the dome was debrided back to stable border and stimulation was performed. Once the arthroscopic procedure was completed the instruments removed. The portals were closed with nylon and local anesthetic was injected into the joint. At this point attention was turned posterior medially on the ankle and incision just at the posterior medial border of the tibia at the level of the known spike on the CT scan was made down through the skin subcutaneous tissues. The sheath for the posterior tibialis tendon was opened and the posterior tibialis tendon was retracted posteriorly this brought us down directly on the spur from the malunited fragment which was a rather pointed ridge directly abutting the posterior tibialis tendon. Posterior tibialis tendon was inspected and intact. The ridge was then removed using a rongeur and bur and then rasped smooth and bone wax placed. The tendon was replaced back into its new groove where the gliding was smooth. This wound was then irrigated and closed in a layered fashion. Next the leg was internally rotated to expose the lateral malleolar scar from the previous fibular fixation. This was reopened through the skin and subcutaneous tissues down to the level of the plate. Plate and screws were exposed and the locking plate and screws removed this was a total of multiple locking screws distally cortical screws proximally and a separate inter frag lag screw outside the plate. All hardware was removed. The prominences were rongeured down the wounds were irrigated. Final fluoroscopic x-ray was brought in to confirm appropriate ankle alignment and hardware removal. Once this was completed all wounds were closed in a layered fashion. Additional anesthetic was injected for postoperative pain control. Sterile dressing was applied with Xeroform gauze and Webril and an Tommy wrap. The patient was woken from anesthesia and taken to recovery room in good condition there no immediate complications from this procedure. Counts were correct. Complications: none Post-operative Condition: stable Disposition: PACU Plan for aftercare: Weightbear as tolerated in the boot. Follow-up in 2 weeks. Aspirin for DVT prophylaxis. Elevate above the heart level as much as possible 1st 2 weeks after surgery to minimize swelling and help with healing.
== END 2023-01-16 11:55 | disposition home or self-care (01) ==
PROVIDERS: PCP Student in an Organized Health Care Education/Training Program; Referring Provider Orthopaedic Surgery Foot and Ankle Surgery; Visit Provider Orthopaedic Surgery Foot and Ankle Surgery
PROC: (CPT 27640; principal; 2023-01-16 07:45)
DX: T84.84XA Pain due to internal orthopedic prosthetic devices, implants and grafts, initial encounter (principal); S82.392 Other fracture of lower end of left tibia; M95.8 Other specified acquired deformities of musculoskeletal system; M24.072 Loose body in left ankle
CPT/HCPCS: 27640; 29894; 27704; J0690; J1100; J1170; J1885; J2405; J2704; J3010

== ENCOUNTER → 2023-12-25 18:58 | Outpatient (CLI) | payer OTHER, SELFPAY ==
[2022-03-06 20:32] VITALS: BMI 22.3
--- NOTE | 2023-12-25 | DI.MRI.S_ITS ---
PROCEDURE: MR HIP LT WO CON INDICATIONS: Pain in left hip TECHNIQUE: Noncontrast coronal T1 spin echo and STIR through the bony pelvis. Coronal and axial T2 fast spin echo with fat saturation, sagittal T1 spin echo, and oblique axial T2 fast spin echo with fat saturation through the hip. COMPARISON: None. FINDINGS: Image quality: Excellent. Bones and joints: There is prominence of superior anterior left femoral head neck junction with subtle underlying edema which can be seen associated with CAM type femoral acetabular impingement. [id number] left hip joint osteoarthritic changes are seen with joint space narrowing, subchondral sclerosis and cyst formation in left acetabular roof and small lateral marginal osteophyte formation. No acute fracture or dislocation. No avascular necrosis of the femoral heads. The visualized lower lumbar spine appears normally aligned. Tendons and ligaments: Distal left gluteus medius and minimus tendinosis at their insertions on greater trochanter is seen. The nearby proximal iliotibial band also appears intact. The iliopsoas tendon appears intact, without adjacent bursal fluid collections or evidence for impingement syndrome. Tendinosis involving the origins of left hamstring tendons at ischial tuberosity is also noted. Labrum and cartilage: There is subtle superior anterior left hip labral signal abnormality and fraying at 12 to 2 o'clock position suggestive of superior anterior left hip labral tear. Cartilage surface of the femoral head appears thinned. The alpha angle of the femur is within normal limits at less than 55 degrees. Soft tissues: Visualized muscles demonstrate normal bulk and internal signal. Quadratus femoris muscle demonstrates no internal edema to suggest ischiofemoral impingement. The proximal sciatic neurovascular bundle appears normal adjacent to the hamstring tendons. No free pelvic fluid. Bladder wall thickness is normal. Genitourinary structures and bowel loops appear normal where visualized. IMPRESSION: 1. [id number] left hip joint osteoarthritis. No fracture or dislocation. No evidence of avascular necrosis of femoral head. Prominence of superior anterior left femoral head neck junction with subtle underlying T2 hyperintense signal which can be seen associated with CAM type femoral acetabular impingement. 2. Distal left gluteus medius and minimus tendinosis. Tendinosis involving left hamstring tendon origins at ischial tuberosity. 3. Suggestion of superior anterior left hip labral tear at 12 to 2 o'clock position. Dictated by: Az Saba M.D. on 12/28/2023 at 9:48 Approved by: Az Saba M.D. on 12/28/2023 at 9:50
== END ==
LOC: MRI 18:58
PROVIDERS: PCP Student in an Organized Health Care Education/Training Program; Referring Provider Physician Assistant; Visit Provider Physician Assistant
DX: M16.11 Unilateral primary osteoarthritis, right hip (principal); M25.552 Pain in left hip
CPT/HCPCS: 73721